=== PATIENT | male | born 1975 | race Caucasian/White ===

== ENCOUNTER 2018-09-08 11:31 | Emergency (ER) | payer OTHER ==
[~2018-09-08] VITALS: Ht 180.3 cm; Wt 104.3 kg
[2018-09-08] MEDS ORDERED: PRAVACHOL80 MG PO (11:58)
== END 2018-09-08 14:55 | disposition home or self-care (01) ==
LOC: ER 11:31
DX: L03.116 Cellulitis of left lower limb (principal)